=== PATIENT | male | born 1970 | race Caucasian/White ===

== ENCOUNTER → 2021-04-23 | Outpatient (CLI) | payer BC ==
[~2021-04-23] MED LIST: TOPROL XL50 MG PO
[2021-04-23 08:52] LABS: HEMOGLOBIN 15.4 gm/dl (14.0-17.5); RED BLOOD COUNT 4.8 M/UL (4.20-5.50); WHITE BLOOD COUNT 6.1 K/UL (4.5-11.0)
[2021-04-23 09:14] LABS: BUN/CREATININE RATIO 14 (0-10)
== END ==
LOC: EDSTATUS 08:00 → OPSV2 08:00
PROVIDERS: Orthopaedic Surgery
DX: Z01.818 Encounter for other preprocedural examination (principal); M51.36 Other intervertebral disc degeneration, lumbar region; M48.061 Spinal stenosis, lumbar region without neurogenic claudication
CPT/HCPCS: 71046; 80048; 81001; 85027; 85610; 85730; 87081; 93005

== ENCOUNTER → 2021-05-05 | Outpatient (CLI) | payer BC ==
[2021-05-05 16:40] LABS: BUN/CREATININE RATIO 12 (0-10)
== END ==
LOC: LAB 14:01
PROVIDERS: Orthopaedic Surgery
DX: Z01.812 Encounter for preprocedural laboratory examination (principal)
CPT/HCPCS: 36415; 80048; 86850; 86900; 86901

== ENCOUNTER 2021-05-06 05:35 | Inpatient (IN) | payer BC ==
[~2021-05-06] VITALS: Ht 193 cm; Wt 125.0 kg
[2021-05-06 17:12] LABS: HEMOGLOBIN 15.5 gm/dl (14.0-17.5); RED BLOOD COUNT 4.89 M/UL (4.20-5.50); WHITE BLOOD COUNT 17.7 K/UL (4.5-11.0)
[2021-05-06 17:32] LABS: BUN/CREATININE RATIO 18 (0-10)
--- NOTE | 2021-05-07 02:44 | NUR ---
0235 DR HERNANDEZ AWARE OF PT CURRENT CKMB. ORDERS PLACED FOR CXR AND CHANGE IN IVF.
[2021-05-07 04:30] LABS: HEMOGLOBIN 14.5 gm/dl (14.0-17.5); RED BLOOD COUNT 4.57 M/UL (4.20-5.50); WHITE BLOOD COUNT 13.9 K/UL (4.5-11.0)
[2021-05-07 04:45] LABS: BUN/CREATININE RATIO 15 (0-10)
[2021-05-08 05:23] LABS: HEMOGLOBIN 12.3 gm/dl (14.0-17.5); RED BLOOD COUNT 3.94 M/UL (4.20-5.50); WHITE BLOOD COUNT 9.2 K/UL (4.5-11.0)
[2021-05-08 06:07] LABS: BUN/CREATININE RATIO 12 (0-10)
[2021-05-09 03:17] LABS: HEMOGLOBIN 11.4 gm/dl (14.0-17.5); RED BLOOD COUNT 3.64 M/UL (4.20-5.50); WHITE BLOOD COUNT 7.2 K/UL (4.5-11.0)
[2021-05-09 04:02] LABS: BUN/CREATININE RATIO 11 (0-10)
[2021-05-10 03:39] LABS: HEMOGLOBIN 11.7 gm/dl (14.0-17.5); RED BLOOD COUNT 3.71 M/UL (4.20-5.50); WHITE BLOOD COUNT 6.7 K/UL (4.5-11.0)
[2021-05-10 04:35] LABS: BUN/CREATININE RATIO 12 (0-10)
[2021-05-10] MEDS ORDERED: TOPROL XL50 MG PO (10:50)
== END 2021-05-10 14:01 | disposition home or self-care (01) | DRG 460 ==
LOC: OR 05:35 → CCU 15:55 → M/S 05-08 13:37
PROVIDERS: Internal Medicine Infectious Disease; ADMIT Orthopaedic Surgery
PROC: 01NB0ZZ Release Lumbar Nerve, Open Approach (ICD-10-PCS; 2021-05-06)
PROC: 4A11X4G Monitoring of Peripheral Nervous Electrical Activity, Intraoperative, External Approach (ICD-10-PCS; 2021-05-06)
PROC: 0SB20ZZ Excision of Lumbar Vertebral Disc, Open Approach (ICD-10-PCS; 2021-05-06)
PROC: 0SP004Z Removal of Internal Fixation Device from Lumbar Vertebral Joint, Open Approach (ICD-10-PCS; 2021-05-06)
PROC: 0SG1071 Fusion of 2 or more Lumbar Vertebral Joints with Autologous Tissue Substitute, Posterior Approach, Posterior Column, Open Approach (ICD-10-PCS; principal; 2021-05-06 07:30)
DX: M48.061 Spinal stenosis, lumbar region without neurogenic claudication (principal); M62.82 Rhabdomyolysis; M51.36 Other intervertebral disc degeneration, lumbar region; M54.16 Radiculopathy, lumbar region; R00.0 Tachycardia, unspecified; G89.29 Other chronic pain; R07.9 Chest pain, unspecified
CPT/HCPCS: 36415; 71045; 72100; 72110; 76000; 80048; 80053; 82550; 82553; 84439; 84443; 84484; 85025; 85027; 86850; 86900; 86901; 93005; 97116-GP-CQ; 97161; 97166; 97535; C1713; C1762; C1781; J0690; J1040; J1100; J1170; J2250; J2370; J2405; J2704; J3010; J3370; J7030; J7040; J7120; U0003